=== PATIENT | male | born 1990 | race Asian ===

== ENCOUNTER → 2022-02-08 | Outpatient (REF) | LOC: M PLAIMG 10:33 | PROVIDERS: ATTEND Internal Medicine | DX: M54.50 Low back pain, unspecified (principal) ==

== ENCOUNTER → 2022-02-21 | Outpatient (REF) | LOC: M PLAIMG 12:06 | PROVIDERS: ATTEND Internal Medicine | DX: R52 Pain, unspecified (principal) ==

== ENCOUNTER → 2022-08-12 | Outpatient (CLI) | payer OTHER | LOC: M SLEEP 20:00 | PROVIDERS: ATTEND Physician Assistant Medical | DX: G47.30 Sleep apnea, unspecified (principal) ==

== ENCOUNTER 2024-02-14 05:03 | Emergency (ER) | payer BC, OTHER ==
[~2024-02-14] VITALS: Ht 167.6 cm; Wt 77.3 kg
[2024-02-14] MEDS: NS (Normal Saline) 0.9% 1,000 ML IV ONE (07:00)
[2024-02-14 07:08] LABS: BASO % 0.3 % (0.0-1.0); EOS # 0.3 10^3/uL (0.0-0.5); EOS % 3.1 % (0.0-3.0); HEMATOCRIT 46.3 % (42.0-52.0); HEMOGLOBIN 15.9 g/dl (13.5-17.5); LYMPH # 4.2 10^3/uL (1.5-5.0); LYMPH % 46.9 % (24.0-44.0); MEAN CORPUSCULAR HEMOGLOBIN 29.2 pg (27.0-33.0); MEAN CORPUSCULAR HGB CONC 34.3 g/dl (32.0-36.5); MEAN CORPUSCULAR VOLUME 85.1 fl (80.0-96.0); MONO % 10.7 % (2.0-8.0); NEUTROPHILS # 3.4 10^3/uL (1.5-8.5); NEUTROPHILS % 38.3 % (36.0-66.0); PLATELET COUNT, AUTOMATED 398 10^3/uL (150-450); RED BLOOD COUNT 5.44 10^6/uL (4.30-6.10); WHITE BLOOD COUNT 8.9 10^3/uL (4.0-10.0)
[2024-02-14 07:22] LABS: BLOOD UREA NITROGEN 10 MG/DL (9-23); CALCIUM LEVEL 9.9 MG/DL (8.5-10.1); CARBON DIOXIDE LEVEL 27 MMOL/L (20-31); CHLORIDE LEVEL 104 MMOL/L (98-107); CK-MB VALUE MASS < 1.0 NG/ML (<3.6); CPK CREATINE PHOSPHOKINASE 112 U/L (46-171); CREATININE FOR GFR 0.95 MG/DL (0.70-1.30); GLOMERULAR FILTRATION RATE > 60.0 (>60); GLUCOSE, FASTING 92 MG/DL (60-100); MAGNESIUM LEVEL 2.2 MG/DL (1.8-2.4); MB/CK RELATIVE INDEX 0.89 (< OR =4); POTASSIUM SERUM 3.9 MMOL/L (3.5-5.1); SODIUM LEVEL 138 MMOL/L (136-145)
[2024-02-14 07:24] LABS: FREE T4 1.52 NG/DL (0.89-1.76)
[2024-02-14 07:25] LABS: THYROID STIMULATING HORMONE 1.744 uIU/ML (0.55-4.78)
[2024-02-14 08:36] LABS: CK-MB VALUE MASS < 1.0 NG/ML (<3.6)
[2024-02-14 08:37] LABS: CPK CREATINE PHOSPHOKINASE 99 U/L (46-171); MB/CK RELATIVE INDEX 1.01 (< OR =4)
[2024-02-14] MEDS ORDERED: HOLTER MONITOR XX (10:35)
[2024-02-14 10:45] VITALS: BP 156/91; TEMP 96.7; O2SAT 99
== END 2024-02-14 10:59 | disposition home or self-care (01) ==
LOC: M ED 05:03
DX: R00.2 Palpitations (principal)

== ENCOUNTER → 2024-02-20 | Outpatient (CLI) | payer BC, OTHER ==
[~2024-02-20] MED LIST: HOLTER MONITOR XX
== END ==
LOC: M EKG 14:45
PROVIDERS: ATTEND Emergency Medicine
DX: R00.1 Bradycardia, unspecified (principal)